=== PATIENT | female | born 1990 ===

== ENCOUNTER 2016-12-09 06:20 | Inpatient (IN) ==
[2016-12-09] MEDS ORDERED: MEPERIDINE 50 MG/1 ML VIAL IM PRN (06:33)
[2016-12-09] MEDS ORDERED: ONDANSETRON 4 MG/2 ML VIAL IV PRN (06:33)
[2016-12-09] MEDS ORDERED: LACTATED RINGERS 1,000 ML IV SCH (07:00)
[2016-12-09] MEDS ORDERED: OXYTOCIN/LR 20 UNIT/1,000 ML BAG IV SCH ×2 (07:00→07:30)
[2016-12-09 07:02] LABS: Basophils % 0.3 % (0.0-0.8); Eosinophils # 0.1 10*3/uL (0.0-0.87); Eosinophils % 1.2 % (0.00-10.9); Hematocrit 34.1 VOL% (35.7-47.0); Hemoglobin 11.3 GM/DL (12.0-16.0); Immature Granulocytes % 0.7 %; Immature Granulocytes Absolute 0.05 #; Lymphocytes # 1.8 10*3/uL (1.4-4.0); Lymphocytes % 23.6 % (21.3-54.2); Mean Corpuscular HGB Conc 33.1 GM/DL (32-36); Mean Corpuscular Hemoglobin 27 PG (27-34); Mean Corpuscular Volume 81.2 FL (87-102); Mean Platelet Volume 11.9 FL (9.6-12.0); Monocytes # 0.5 10*3/uL (0.11-0.8); Monocytes % 6.2 % (1.7-12.7); Neutrophils # 5.1 10*3/uL (1.4-7.4); Platelet Count 195 T/CUMM (130-400); Red Cell Distribution Width 14.2 % (9.3-17.3); White Blood Count 7.4 T/CUMM (4-12)
[2016-12-09] MEDS ORDERED: ePHEDrine 50 MG/ML AMP IV PRN (07:21)
[2016-12-09] MEDS ORDERED: diphenhydrAMINE 50 MG/1 ML VIAL IV PRN ×2 (07:21)
[2016-12-09] MEDS ORDERED: fentaNYL 2 MCG/ROPIV 0.2% EPID 150 ML EPIDURAL SCH (07:21)
[2016-12-09] MEDS ORDERED: PROMETHAZINE 25 MG/1 ML VIAL IM ONE (07:21)
[2016-12-09] MEDS ORDERED: FAMOTIDINE 20 MG/2 ML VIAL IV ONE (07:21)
[2016-12-09] MEDS ORDERED: hydrOXYzine HCL 25 MG/1 ML VIAL IM PRN (07:21)
[2016-12-09] MEDS ORDERED: CITRIC ACID/SODIUM CITRATE 30 ML UDCUP PO ONE (07:21)
[2016-12-09] MEDS ORDERED: LACTATED RINGERS 1,000 ML IV ONE (07:21)
[2016-12-09] MEDS ORDERED: ONDANSETRON 4 MG/2 ML VIAL IV ONE (07:21)
[2016-12-09 07:40] LABS: Alanine Aminotransferase 21 U/L (13-56); Albumin 2.6 G/DL (3.4-5.0); Alkaline Phosphatase 128 U/L (45-117); Aspartate Amino Transferase 18 U/L (0-37); Bilirubin,Total < 0.39 MG/DL (0.2-1.0); Blood Urea Nitrogen 9 MG/DL (7-18); Calcium 8.6 MG/DL (8.5-10.1); Glucose 93 MG/DL (74-106); Osmolality,Calculated 273.7 MOS/KG (273-304); Sodium 138 MMOL/L (136-145); Total Protein 6.7 G/DL (6.4-8.3)
[2016-12-09] MEDS ORDERED: MEPERIDINE 50 MG/1 ML VIAL IV PRN (08:47)
--- NOTE | 2016-12-09 10:02 | OB/GYN History & Physical ---
History of Present Illness Chief complaint: In for elective induction of labor due to term . History of present illness: Ms. Cedeño is a 26 year old female who is a 4 para 3 living 3. Her SONA is 12/13/2016 for an estimated gestational age of 39 weeks and 3 days. The patient presents for elective induction of labor due to term . The risk and benefits have been thoroughly discussed with this patient and significant other and plan of care has been discussed with Dr. Salcido, all parties are in agreement with plan. The patient began her care late, she then received routine care throughout and her course was uneventful. labs: She is O+, serologies nonreactive, rubella is immune , hepatitis B negative, HIV negative, GBS culture is negative. The patient has had 3 previous vaginal deliveries and the largest infant weighing 8 pounds and 1 ounce. She reported no complications with any of her pregnancies. Review of systems is negative with exception of above. Home Medications Medication Instructions Recorded Confirmed Type Multivitamin () [ 1 tablet PO DAILY 02/06/16 12/09/16 History Vitamin] Allergies Allergy/AdvReac Type Severity Reaction Status Date / Time No Known Allergies Allergy Verified 01/30/16 08:48 12 point system: reviewed and no additional remarkable complaints except as stated Medical,Surgical,& Family Hx - Medical History Medical History: noncontributory Psychological: No history of: Anxiety Disorders, ADHD, Behavior Problems, Bipolar Disorder, Depression, Previous Suicide Attempt, Psychiatric/Substance Abuse Tx, Schizophrenia, Violent Behavior, Psychiatric Problems Endocrine: History of: Diabetes Mellitus (NIDDM) (gestational) Reproductive: No history of: Ectopic - Surgical History Surgical History: noncontributory Thoracic Surgeries: Patient denies;: Organ Transplant Neurologic Surgeries: Patient denies: Neurologic Surgery Abdominal Surgeries: Patient denies: Abdominal Surgery Reproductive Surgeries: Patient denies;: Gynecologic Surgery - Family History Family History: Reports;: Family Cancer (pt mom and sister), Family Diabetes ( pt mom) Denies;: Family Anesthesia Reaction, Family Hypertension, Family Psychiatric Problems, Family Stroke, Additional Family History - Social History Smoking Status: Never smoker Frequency of Alcohol Use: None Type of Drug Use: None Marital Status: Single Lives With:: Significant Other 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 - Constitutional Vitals: Vital Signs Temp Pulse Resp BP Pulse Ox 12/09/16 08:00 98.0 F 68 20 135/88 100 12/09/16 06:36 97.6 F 130/69 General appearance: no acute distress - Antepartum / Post Antepartum Exam Cervix - Dilatation: 4 cm Effacement: 70% Station: -2 Rupture: Intact Presentation: Vertex Heart Rate: 140s Abdomen obstetrics: Present: bowel sounds normal Vagina: Present: normal moisture, discharge Uterus exam: Present: enlarged Anus/Rectum: Present: normal perianal skin - Respiratory Respiratory exam: Present: clear to auscultation bilaterally - Cardiovascular Cardiovascular exam: Present: regular rate and rhythm - GI/Abdominal GI/Abdominal exam: Present: normal bowel sounds, soft - Extremities Exam Extremities exam: Present: normal inspection - Neurological Exam Neurological exam: Present: alert, oriented X3 - Psychiatric Psychiatric exam: Present: normal affect, normal mood - Skin Skin exam: Present: normal color, warm Assessment and Plan (1) Term Status: Acute Assessment and plan: Admit IV fluids IV Pitocin per protocol Artificial rupture membranes when appropriate Internal monitors if indicated Epidural anesthesia if desired Anticipate Current Visit: Yes Results - Labs CBC & BMP: 12/09/16 06:52 12/09/16 06:52 Quality Measures - VTE Contraindication to Pharmacological VTE Prophylaxis: Clinical assessment deems Pt at low risk, no prophalaxis needed
[2016-12-09] MEDS ORDERED: LIDOCAINE 1% 50 ML VIAL ONE (12:40)
[2016-12-09] MEDS ORDERED: miSOPROStol 200 MCG TABLET ONE (12:40)
--- NOTE | 2016-12-09 13:04 | Event Note ---
HPI: Ms Cedeño presented to the hospital for elective induction of labor due to term . The risk and benefits were discussed with the patient and significant other, plan of care was discussed with Dr. Salcido and all parties were in agreement plan. Stage I: The patient was admitted she received IV fluids and IV Pitocin per protocol. Artificial rupture membranes was performed with clear fluid noted. The patient progressed in labor with a CAT 1 tracing. She received an epidural for pain control. She had an uneventful course of labor. Stage II: The patient was complete and complained of pressure and desire to push. She pushed for approximately 15 minutes after which time the 's head was delivered. The mouth and nose were suctioned on perineum. The remainder the infant was delivered at 1248, a viable female was noted. Apgars were 8 at 1 minute and 9 at 5 minutes. weight was 8 pounds and 8 ounces. A cord pH was obtained and sent to the lab. The was placed on the mom's abdomen for skin to skin bonding. Stage III: A spontaneous delivery of a Alexander placenta with a three-vessel cord noted.. The placenta was further examined appeared to be grossly intact. The vagina cervix was inspected with no tears or lacerations noted. Estimated blood loss was approximately 150 cc. At the time of dictation mother and baby are both in stable condition.
[2016-12-09 13:09] LABS: Apearance,Urine CLEAR (Clear); Bilirubin,Urine Negative (Negative); Blood, Urine Negative (Negative); Glucose,Urine (UA) Negative (Negative); Hyaline Casts,Urine 1 /LPF (0-3); Ketones,Urine Negative (Negative); Mucus,Urine Occasional /LPF (Occasional); Nitrite,Urine Negative (Negative); Protein,Urine Negative; Squamous Epithelial Cell,Urine Occasional /HPF (0-10); Urine Color Yellow (Yellow); Urine Specific Gravity 1.018 (1.001-1.035); Urine Urobilinogen < 2.0 EU/DL (0.2-1.0); WBC,Urine 1 /HPF (0-6)
--- NOTE | 2016-12-09 14:15 | Anesthesia Post-Op ---
Anesthesia Post OP - Post Ansesthetic Evaluation Patient seen in post op: Yes Resp: within normal limits CV: within normal limits Mental: within normal limits Temp: within normal limits [id number]: within normal limits Nausea and Vomiting: within normal limits Pain: within normal limits
[2016-12-09] MEDS ORDERED: LANOLIN 50% CREAM 0.3 OZ TUBE TOP PRN (15:14)
[2016-12-09] MEDS ORDERED: OXYTOCIN/LR 20 UNIT/1,000 ML BAG IV ONE (15:14)
[2016-12-09] MEDS ORDERED: ACETAMINOPHEN 325 MG TABLET PO PRN (15:14)
[2016-12-09] MEDS ORDERED: DIPH/TET/ACEL PERT BOOSTER VACCINE 0.5 ML VIAL IM ONE (15:14)
[2016-12-09] MEDS ORDERED: oxyCODONE/ACETAMINOPHEN 5-325 MG TABLET PO PRN ×2 (15:14)
[2016-12-09] MEDS ORDERED: RHO(D) IMMUNE GLOBULIN 300 MCG SYRINGE IM ONE (15:14)
[2016-12-09] MEDS ORDERED: MEASLES/MUMPS/RUBELLA VACCINE 0.5 ML VIAL SUBCUT ONE (15:14)
[2016-12-09] MEDS ORDERED: BISACODYL 10 MG SUPP RECTAL PRN (15:14)
[2016-12-09] MEDS ORDERED: WITCH HAZEL PADS 100/JAR TOP PRN (15:14)
[2016-12-09] MEDS ORDERED: HYDROCORTISONE 2.5% RECTAL CREAM 30 GM TUBE TOP PRN (15:14)
[2016-12-09] MEDS ORDERED: BENZOCAINE 20%/MENTHOL 0.5% SPRAY 56 GM CAN TOP PRN (15:14)
[2016-12-09] MEDS: ACETAMINOPHEN/CODEINE 300-30 MG TABLET PO PRN (18:13)
[2016-12-09] MEDS: DOCUSATE SODIUM 100 MG CAPSULE PO SCH (21:09)
[2016-12-10] MEDS: IBUPROFEN 800 MG TABLET PO PRN ×4 (01:08→20:03)
[2016-12-10 06:37] LABS: Basophils % 0.2 % (0.0-0.8); Eosinophils # 0.1 10*3/uL (0.0-0.87); Eosinophils % 1.1 % (0.00-10.9); Hematocrit 30.1 VOL% (35.7-47.0); Hemoglobin 9.9 GM/DL (12.0-16.0); Immature Granulocytes % 0.4 %; Immature Granulocytes Absolute 0.04 #; Lymphocytes # 1.7 10*3/uL (1.4-4.0); Lymphocytes % 18.3 % (21.3-54.2); Mean Corpuscular HGB Conc 32.9 GM/DL (32-36); Mean Corpuscular Hemoglobin 27 PG (27-34); Mean Corpuscular Volume 81.4 FL (87-102); Mean Platelet Volume 12.3 FL (9.6-12.0); Monocytes # 0.6 10*3/uL (0.11-0.8); Monocytes % 6.3 % (1.7-12.7); Neutrophils # 6.9 10*3/uL (1.4-7.4); Neutrophils % 73.7 % (38.7-73.9); Platelet Count 150 T/CUMM (130-400); Red Cell Distribution Width 14.1 % (9.3-17.3); White Blood Count 9.4 T/CUMM (4-12)
[2016-12-10] MEDS: DOCUSATE SODIUM 100 MG CAPSULE PO SCH (09:00)
[2016-12-10] MEDS: ACETAMINOPHEN/CODEINE 300-30 MG TABLET PO PRN (13:05)
--- NOTE | 2016-12-10 20:50 | Progress Note ---
Family Medicine PN Sub Interval history: Status post vaginal day #2 Lungs are clear, cardiac exam benign Abdomen benign, uterus is nice and firm Extremities well with no limits neurologic grossly intact Assessment and plan Possible discharge in a.m. continue with present therapy Exam (Progress Note) - Constitutional Vitals: Period Temp Pulse Resp BP Sys/Moore Pulse Ox Last 24 Hr 97.1 F-98.8 F 64-73 18-20 104-133/50-72 97-99 Results - Labs CBC & BMP: 12/10/16 06:15 12/09/16 06:52 Quality Measures - VTE Contraindication to Pharmacological VTE Prophylaxis: Clinical assessment deems Pt at low risk, no prophalaxis needed Specialty Discharge - Follow Up or Referrals Follow up with: Jadon Salcido MD [Physician] -
[2016-12-11 07:21] VITALS: BP 126/76
[2016-12-11] MEDS: IBUPROFEN 800 MG TABLET PO PRN (07:44)
[2016-12-11] MEDS: ACETAMINOPHEN/CODEINE 300-30 MG TABLET PO PRN (07:45)
[2016-12-11] MEDS: DOCUSATE SODIUM 100 MG CAPSULE PO SCH (08:54)
--- NOTE | 2016-12-11 09:28 | Discharge Summary ---
Hospital Course - Hospital Course Hospital Course: Ms. Cedeño presented to the labor department for elective induction of labor due to term . She subsequently delivered a viable infant with no complications. She has followed a normal course and she has done well. She is bleeding minimally with no odor. Her fundus is firm and midline. Her perineum is intact with no edema. She is voiding without difficulty. Her vital signs and lab values are stable. She is bonding well with her . She will be discharged home prescriptions for pain and a follow-up appointment in our office. Diagnosis - Discharge Diagnosis (1) Term Status: Acute Specialty Discharge - Follow Up or Referrals Follow up with: Jadon Salcido MD [Physician] - (Follow-up in 4 weeks to set up for surgery for an elective bilateral tubal ligation.) Discharge Plan - Discharge Data Disposition: Disch To Home/Self Care Condition at Discharge: Stable Discharge Diet: advance to your usual diet, regular diet Activity: resume usual activities as tolerated Hygiene: no restrictions Weight Bearing at Discharge: weight bear as tolerated Driving: no restrictions Contact your physician if you experience:: fever over 101, pain uncontrolled by pain medications - Discharge Medications New Acetamin/Codeine 300-30 Tab [Tylenol/Codeine #3] 2 tablet PO Q4H PRN #30 tablet PRN Reason: Pain Mild (1-3) Ibuprofen Tab [Motrin Tab] 800 mg PO Q6H PRN #30 tablet PRN Reason: Pain Moderate (4-7) No Action Multivitamin () [ Vitamin] 1 tablet PO DAILY - Follow Up or Referral Follow Up: Jadon Salcido MD [Physician] - (Follow-up in 6 weeks) - Forms/Instructions Instructions: Depression (GEN), Perineal Care (DC), Vaginal Delivery (DC), Bleeding (DC) Exam - Constitutional Vitals: Period Temp Pulse Resp BP Sys/Moore Pulse Ox Last 24 Hr 97.1 F-97.7 F 65-82 18-20 121-132/63-76 97-98 General appearance: no acute distress - Head Head exam: Present: normal inspection - Respiratory Respiratory exam: Present: clear to auscultation bilaterally - Cardiovascular Cardiovascular exam: Present: regular rate and rhythm - GI/Abdominal GI/Abdominal exam: Present: normal bowel sounds, soft - Extremities Exam Extremities exam: Present: normal inspection - Neurological Exam Neurological exam: Present: alert, oriented X3 - Psychiatric Psychiatric exam: Present: normal affect, normal mood - Skin Skin exam: Present: normal color, warm DS: Provider Date of admission: 12/09/16 06:33 Primary care physician: Nazanin Figueroa MD Attending physician on admission: Jdaon Salcido MD Consults: 12/09/16 15:14 Consult to Hand Finisher [CONS] Routine Consult Hand Finisher: Breast Feeding Discharging clinician: Naty Koehler CNM Expected date of discharge: 12/11/16
== END 2016-12-11 11:35 | disposition home or self-care (01) | DRG 775 ==
LOC: N.LDOUT 06:20 → N.LD 06:21 → N.OB 14:39
PROVIDERS: ADMIT Obstetrics & Gynecology; ATTEND Obstetrics & Gynecology

== ENCOUNTER 2017-12-24 06:14 | Inpatient (IN) ==
[~2017-12-24 06:14] MED LIST: ERTAPENEM 1,000 MG VIAL ONE; ERTAPENEM 1,000 MG in SODIUM CHLORIDE 0.9% 100 ML IV ONE
[2017-12-24] MEDS ORDERED: LACTATED RINGERS 1,000 ML IV SCH (07:00)
[2017-12-24] MEDS ORDERED: ERTAPENEM 1,000 MG in SODIUM CHLORIDE 0.9% 100 ML IV ONE (08:00)
[2017-12-24] MEDS ORDERED: LIDOCAINE 1%/EPI INJ 20 ML VIAL ONE (08:31)
[2017-12-24] MEDS ORDERED: MINERAL OIL (TOPICAL) 25 ML BOTTLE TOP ONE (08:31)
[2017-12-24] MEDS ORDERED: SEVOFLURANE 1 UNIT/15 MINUTE INH ONE (11:53)
[2017-12-24] MEDS ORDERED: LIDOCAINE 1% 5 ML VIAL ONE (11:53)
[2017-12-24] MEDS ORDERED: PROPOFOL 200 MG/20 ML VIAL IV ONE (11:53)
[2017-12-24] MEDS ORDERED: MIDAZOLAM 2 MG/2 ML VIAL ONE (11:54)
[2017-12-24] MEDS ORDERED: SUCCINYLCHOLINE 200 MG/10 ML VIAL ONE (11:54)
[2017-12-24] MEDS ORDERED: fentaNYL 100 MCG/2 ML VIAL ONE (11:54)
[2017-12-24] MEDS ORDERED: KETOROLAC 30 MG/1 ML VIAL ONE (11:54)
[2017-12-24] MEDS ORDERED: NEOSTIGMINE 10 MG/10 ML VIAL ONE (11:54)
[2017-12-24] MEDS ORDERED: LACTATED RINGERS 1,000 ML IV ONE (11:54)
[2017-12-24] MEDS ORDERED: ONDANSETRON 4 MG/2 ML VIAL ONE ×2 (11:54→12:20)
[2017-12-24] MEDS ORDERED: DEXAMETHASONE 10 MG/1 ML VIAL ONE (11:54)
[2017-12-24] MEDS ORDERED: ACETAMINOPHEN 1,000 MG/100 ML VIAL IV ONE (11:54)
[2017-12-24] MEDS ORDERED: ROCURONIUM 100 MG/10 ML VIAL IV ONE (11:54)
[2017-12-24] MEDS ORDERED: GLYCOPYRROLATE 0.4 MG/2 ML VIAL ONE (11:54)
[2017-12-24] MEDS: HYDROmorphone 2 MG/1 ML VIAL IV PRN ×4 (12:20→20:39)
[2017-12-24] MEDS ORDERED: HYDROmorphone 2 MG/1 ML VIAL ONE (12:20)
[2017-12-24] MEDS ORDERED: ONDANSETRON 4 MG/2 ML VIAL IV PRN ×2 (12:24→13:19)
[2017-12-24] MEDS ORDERED: PROMETHAZINE 25 MG/1 ML VIAL IM PRN (13:19)
[2017-12-24] MEDS: LACTATED RINGERS 1,000 ML IV SCH ×2 (13:28→20:46)
[2017-12-24 14:18] LABS: Basophils % 0.1 % (0.0-0.8); Eosinophils % 0.1 % (0.00-10.9); Hematocrit 39.5 VOL% (35.7-47.0); Immature Granulocytes % 0.6 %; Immature Granulocytes Absolute 0.06 #; Lymphocytes # 0.6 10*3/uL (1.4-4.0); Lymphocytes % 5.6 % (21.3-54.2); Mean Corpuscular HGB Conc 32.9 GM/DL (32-36); Mean Corpuscular Hemoglobin 29 PG (27-34); Mean Corpuscular Volume 88.2 FL (87-102); Mean Platelet Volume 11.5 FL (9.6-12.0); Monocytes # 0.1 10*3/uL (0.11-0.8); Monocytes % 0.7 % (1.7-12.7); Neutrophils # 9.2 10*3/uL (1.4-7.4); Neutrophils % 92.9 % (38.7-73.9); Platelet Count 220 T/CUMM (130-400); Red Blood Count 4.48 MC/CUMM (3.8-5.5); Red Cell Distribution Width 13.2 % (9.3-17.3); White Blood Count 9.9 T/CUMM (4-12)
[2017-12-24 14:42] LABS: Band Neutrophils 9 % (0-10); Lymphocytes 8 % (20-55); Platelet Estimate Normal; Segmented Neutrophils 82 % (50-85); Total Cells Counted 100
[2017-12-24 14:43] LABS: Calcium 8.1 MG/DL (8.5-10.1); Osmolality,Calculated 275.5 MOS/KG (273-304); Potassium 4.1 MMOL/L (3.5-5.1)
[2017-12-24] MEDS: KETOROLAC 30 MG/1 ML VIAL IV SCH ×2 (14:50→22:34)
[2017-12-24] MEDS: ALVIMOPAN 12 MG CAPSULE PO SCH (20:39)
[2017-12-24] MEDS: ENOXAPARIN 40 MG/0.4 ML SYRINGE SUBCUT SCH (20:40)
[2017-12-25] MEDS: HYDROmorphone 2 MG/1 ML VIAL IV PRN ×6 (00:01→20:38)
[2017-12-25] MEDS: KETOROLAC 30 MG/1 ML VIAL IV SCH ×4 (03:17→21:35)
[2017-12-25] MEDS: LACTATED RINGERS 1,000 ML IV SCH ×3 (04:21→14:21)
[2017-12-25 07:22] LABS: Basophils % 0.1 % (0.0-0.8); Eosinophils % 0.3 % (0.00-10.9); Hematocrit 34.9 VOL% (35.7-47.0); Hemoglobin 11.4 GM/DL (12.0-16.0); Immature Granulocytes % 0.3 %; Immature Granulocytes Absolute 0.03 #; Lymphocytes # 1.8 10*3/uL (1.4-4.0); Lymphocytes % 16.7 % (21.3-54.2); Mean Corpuscular HGB Conc 32.7 GM/DL (32-36); Mean Corpuscular Hemoglobin 29 PG (27-34); Mean Corpuscular Volume 89.7 FL (87-102); Mean Platelet Volume 12.1 FL (9.6-12.0); Monocytes # 0.8 10*3/uL (0.11-0.8); Monocytes % 7.8 % (1.7-12.7); Neutrophils # 7.9 10*3/uL (1.4-7.4); Neutrophils % 74.8 % (38.7-73.9); Platelet Count 180 T/CUMM (130-400); Red Blood Count 3.89 MC/CUMM (3.8-5.5); Red Cell Distribution Width 13.2 % (9.3-17.3); White Blood Count 10.6 T/CUMM (4-12)
[2017-12-25 07:53] LABS: Calcium 8.1 MG/DL (8.5-10.1); Osmolality,Calculated 272.7 MOS/KG (273-304); Potassium 3.8 MMOL/L (3.5-5.1)
[2017-12-25] MEDS: ALVIMOPAN 12 MG CAPSULE PO SCH ×2 (09:03→20:38)
[2017-12-25] MEDS: DEXT 5% NACL 0.45% KCL 20 MEQ 20 MEQ/1,000 ML BAG IV SCH (15:19)
[2017-12-25] MEDS: ENOXAPARIN 40 MG/0.4 ML SYRINGE SUBCUT SCH (20:38)
[2017-12-26] MEDS: HYDROmorphone 2 MG/1 ML VIAL IV PRN ×5 (02:42→23:26)
[2017-12-26] MEDS: KETOROLAC 30 MG/1 ML VIAL IV SCH ×4 (03:58→21:08)
[2017-12-26] MEDS: DEXT 5% NACL 0.45% KCL 20 MEQ 20 MEQ/1,000 ML BAG IV SCH (03:59)
[2017-12-26 06:25] LABS: Basophils % 0.2 % (0.0-0.8); Eosinophils # 0.1 10*3/uL (0.0-0.87); Eosinophils % 1.2 % (0.00-10.9); Hematocrit 36.7 VOL% (35.7-47.0); Hemoglobin 11.4 GM/DL (12.0-16.0); Immature Granulocytes % 0.6 %; Immature Granulocytes Absolute 0.05 #; Lymphocytes # 1.6 10*3/uL (1.4-4.0); Lymphocytes % 17.6 % (21.3-54.2); Mean Corpuscular HGB Conc 31.1 GM/DL (32-36); Mean Corpuscular Hemoglobin 28 PG (27-34); Mean Corpuscular Volume 90.4 FL (87-102); Mean Platelet Volume 11.6 FL (9.6-12.0); Monocytes # 0.7 10*3/uL (0.11-0.8); Monocytes % 7.3 % (1.7-12.7); Neutrophils # 6.5 10*3/uL (1.4-7.4); Neutrophils % 73.1 % (38.7-73.9); Platelet Count 202 T/CUMM (130-400); Red Blood Count 4.06 MC/CUMM (3.8-5.5); Red Cell Distribution Width 13.3 % (9.3-17.3); White Blood Count 8.9 T/CUMM (4-12)
[2017-12-26 08:53] LABS: Calcium 7.9 MG/DL (8.5-10.1); Osmolality,Calculated 272.7 MOS/KG (273-304); Potassium 3.7 MMOL/L (3.5-5.1)
[2017-12-26] MEDS: ALVIMOPAN 12 MG CAPSULE PO SCH ×2 (09:47→21:08)
[2017-12-26] MEDS: ENOXAPARIN 40 MG/0.4 ML SYRINGE SUBCUT SCH (21:07)
[2017-12-27] MEDS: KETOROLAC 30 MG/1 ML VIAL IV SCH ×2 (03:43→08:46)
[2017-12-27] MEDS: ALVIMOPAN 12 MG CAPSULE PO SCH (11:17)
[2017-12-27] MEDS: HYDROmorphone 2 MG/1 ML VIAL IV PRN ×5 (12:24→22:15)
[2017-12-27] MEDS: ENOXAPARIN 40 MG/0.4 ML SYRINGE SUBCUT SCH (20:48)
[2017-12-28] MEDS: HYDROmorphone 2 MG/1 ML VIAL IV PRN ×5 (00:13→20:40)
[2017-12-28] MEDS: ENOXAPARIN 40 MG/0.4 ML SYRINGE SUBCUT SCH (20:41)
[2017-12-29] MEDS: HYDROmorphone 2 MG/1 ML VIAL IV PRN (02:24)
[2017-12-29] MEDS: LACTATED RINGERS 1,000 ML IV SCH ×2 (03:51→10:56)
[2017-12-29] MEDS ORDERED: BUPIVACAINE 0.25% /EPI 10 ML VIAL ONE (11:49)
[2017-12-29] MEDS ORDERED: LIDOCAINE 1%/EPI INJ 20 ML VIAL ONE (11:49)
[2017-12-29] MEDS ORDERED: MIDAZOLAM 2 MG/2 ML VIAL ONE (12:41)
[2017-12-29] MEDS ORDERED: fentaNYL 100 MCG/2 ML VIAL ONE (12:41)
[2017-12-29] MEDS ORDERED: PROPOFOL 200 MG/20 ML VIAL IV ONE (12:42)
[2017-12-29] MEDS ORDERED: ETOMIDATE 40 MG/20 ML VIAL IV ONE (12:42)
[2017-12-29] MEDS ORDERED: SODIUM CHLORIDE 0.9% 100 ML IV ONE (12:42)
[2017-12-29 19:07] VITALS: BP 119/60
== END 2017-12-29 18:30 | disposition home or self-care (01) | DRG 330 ==
LOC: N.OR 06:14 → N.SDSINP 06:18 → N.5E 13:05
PROVIDERS: ADMIT Surgery; ATTEND Surgery

== ENCOUNTER 2018-01-24 06:01 | Inpatient (IN) ==
[2018-01-24] MEDS ORDERED: PIPERACILLIN/TAZOBACTAM 3,375 MG in SODIUM CHLORIDE 0.9% 100 ML IV STA (06:38)
[2018-01-24] MEDS ORDERED: PIPERACILLIN/TAZOBACTAM 3,375 MG VIAL IV ONE (06:41)
[2018-01-24] MEDS ORDERED: ONDANSETRON 4 MG/2 ML VIAL IV PRN (07:48)
[2018-01-24] MEDS ORDERED: ACETAMINOPHEN 325 MG TABLET PO PRN (07:48)
[2018-01-24] MEDS ORDERED: LIDOCAINE 1%/EPI INJ 20 ML VIAL ONE (08:22)
[2018-01-24] MEDS ORDERED: BUPIVACAINE 0.25% /EPI 10 ML VIAL ONE (08:22)
[2018-01-24] MEDS: cefOXitin 2,000 MG in SYRINGE 1 EACH IV SCH ×3 (09:30→22:03)
[2018-01-24] MEDS ORDERED: MIDAZOLAM 2 MG/2 ML VIAL ONE (10:48)
[2018-01-24] MEDS ORDERED: LACTATED RINGERS 1,000 ML IV ONE (10:49)
[2018-01-24] MEDS ORDERED: KETAMINE 500 MG/10 ML VIAL ONE (10:49)
[2018-01-24] MEDS: PANTOPRAZOLE 40 MG TABLET PO SCH (14:41)
[2018-01-24] MEDS: MORPHINE 4 MG/1 ML VIAL IV PRN ×2 (15:23→22:10)
[2018-01-24] MEDS: ENOXAPARIN 40 MG/0.4 ML SYRINGE SUBCUT SCH (22:02)
[2018-01-25] MEDS: cefOXitin 2,000 MG in SYRINGE 1 EACH IV SCH ×4 (04:15→21:24)
[2018-01-25 07:15] LABS: Basophils % 0.3 % (0.0-0.8); Eosinophils # 0.2 10*3/uL (0.0-0.87); Eosinophils % 2.8 % (0.00-10.9); Hematocrit 31.3 VOL% (35.7-47.0); Hemoglobin 10.3 GM/DL (12.0-16.0); Immature Granulocytes % 0.6 %; Immature Granulocytes Absolute 0.04 #; Lymphocytes # 1.7 10*3/uL (1.4-4.0); Lymphocytes % 24.7 % (21.3-54.2); Mean Corpuscular HGB Conc 32.9 GM/DL (32-36); Mean Corpuscular Hemoglobin 28 PG (27-34); Mean Corpuscular Volume 86.2 FL (87-102); Mean Platelet Volume 10.9 FL (9.6-12.0); Monocytes # 0.6 10*3/uL (0.11-0.8); Monocytes % 9.1 % (1.7-12.7); Neutrophils # 4.2 10*3/uL (1.4-7.4); Neutrophils % 62.5 % (38.7-73.9); Platelet Count 266 T/CUMM (130-400); Red Blood Count 3.63 MC/CUMM (3.8-5.5); Red Cell Distribution Width 13.7 % (9.3-17.3); White Blood Count 6.7 T/CUMM (4-12)
[2018-01-25] MEDS: PANTOPRAZOLE 40 MG TABLET PO SCH (09:29)
[2018-01-25] MEDS: ENOXAPARIN 40 MG/0.4 ML SYRINGE SUBCUT SCH (21:24)
[2018-01-26] MEDS: cefOXitin 2,000 MG in SYRINGE 1 EACH IV SCH ×4 (04:53→20:38)
[2018-01-26] MEDS: MORPHINE 4 MG/1 ML VIAL IV PRN (05:04)
[2018-01-26 05:25] LABS: Basophils % 0.4 % (0.0-0.8); Eosinophils # 0.2 10*3/uL (0.0-0.87); Eosinophils % 3.3 % (0.00-10.9); Hematocrit 31.6 VOL% (35.7-47.0); Hemoglobin 10.4 GM/DL (12.0-16.0); Immature Granulocytes % 0.9 %; Immature Granulocytes Absolute 0.05 #; Lymphocytes # 1.9 10*3/uL (1.4-4.0); Mean Corpuscular HGB Conc 32.9 GM/DL (32-36); Mean Corpuscular Hemoglobin 28 PG (27-34); Mean Corpuscular Volume 85.2 FL (87-102); Mean Platelet Volume 10.8 FL (9.6-12.0); Monocytes # 0.5 10*3/uL (0.11-0.8); Monocytes % 8.2 % (1.7-12.7); Neutrophils # 3.1 10*3/uL (1.4-7.4); Neutrophils % 54.2 % (38.7-73.9); Platelet Count 302 T/CUMM (130-400); Red Blood Count 3.71 MC/CUMM (3.8-5.5); Red Cell Distribution Width 13.5 % (9.3-17.3); White Blood Count 5.7 T/CUMM (4-12)
[2018-01-26 05:35] LABS: Calcium 8.4 MG/DL (8.5-10.1); Osmolality,Calculated 277.3 MOS/KG (273-304); Potassium 3.4 MMOL/L (3.5-5.1)
[2018-01-26] MEDS: PANTOPRAZOLE 40 MG TABLET PO SCH (08:21)
[2018-01-26] MEDS: ENOXAPARIN 40 MG/0.4 ML SYRINGE SUBCUT SCH (20:39)
[2018-01-27] MEDS: cefOXitin 2,000 MG in SYRINGE 1 EACH IV SCH (04:21)
[2018-01-27] MEDS: PANTOPRAZOLE 40 MG TABLET PO SCH (08:03)
[2018-01-27] MEDS ORDERED: POTASSIUM CHLORIDE 20 MEQ TABLET PO SCH (09:00)
[2018-01-27] MEDS ORDERED: CLINDAMYCIN 300 MG CAPSULE PO SCH (12:00)
[2018-01-27 12:56] VITALS: BP 105/73
== END 2018-01-27 16:31 | disposition home health service (06) | DRG 580 ==
LOC: EDUNIT# → EDBD → N.ED 06:01 → N.EDINP 07:08 → N.5E 09:42
PROVIDERS: ADMIT Surgery; ATTEND Surgery

== ENCOUNTER 2018-02-02 10:30 | Inpatient (IN) ==
[2018-02-02] MEDS ORDERED: ONDANSETRON 4 MG/2 ML VIAL ONE (10:54)
[2018-02-02] MEDS ORDERED: HYDROmorphone 2 MG/1 ML VIAL ONE (10:55)
[2018-02-02] MEDS ORDERED: PIPERACILLIN/TAZOBACTAM 3,375 MG in SODIUM CHLORIDE 0.9% 100 ML IV STA (11:02)
[2018-02-02] MEDS ORDERED: ONDANSETRON 4 MG/2 ML VIAL IV STA (11:22)
[2018-02-02] MEDS ORDERED: HYDROmorphone 2 MG/1 ML VIAL IV STA (11:22)
[2018-02-02] MEDS ORDERED: ACETAMINOPHEN 325 MG TABLET PO PRN (14:07)
[2018-02-02] MEDS ORDERED: PROMETHAZINE 25 MG/1 ML VIAL IM PRN (14:07)
[2018-02-02] MEDS: LACTATED RINGERS 1,000 ML IV SCH (14:30)
[2018-02-02] MEDS: KETOROLAC 15 MG/1 ML VIAL IV SCH ×2 (14:32→20:08)
[2018-02-02] MEDS: metroNIDAZOLE INJ 500 MG in PREMIX 1 EACH IV SCH ×2 (14:32→22:35)
[2018-02-02] MEDS: HYDROmorphone 2 MG/1 ML VIAL IV PRN ×2 (15:40→22:37)
[2018-02-02] MEDS: PIPERACILLIN/TAZOBACTAM 3,375 MG in SODIUM CHLORIDE 0.9% 100 ML IV SCH (15:40)
[2018-02-03] MEDS: PIPERACILLIN/TAZOBACTAM 3,375 MG in SODIUM CHLORIDE 0.9% 100 ML IV SCH ×3 (00:32→17:35)
[2018-02-03] MEDS: KETOROLAC 15 MG/1 ML VIAL IV SCH ×4 (01:59→22:35)
[2018-02-03] MEDS: HYDROmorphone 2 MG/1 ML VIAL IV PRN ×2 (02:45→07:00)
[2018-02-03] MEDS: ENOXAPARIN 40 MG/0.4 ML SYRINGE SUBCUT SCH (06:49)
[2018-02-03] MEDS: metroNIDAZOLE INJ 500 MG in PREMIX 1 EACH IV SCH (06:49)
[2018-02-03] MEDS ORDERED: LACTATED RINGERS 1,000 ML IV ONE ×2 (07:06→10:02)
[2018-02-03] MEDS: ONDANSETRON 4 MG/2 ML VIAL IV PRN (07:24)
[2018-02-03 08:45] LABS: Basophils % 0.1 % (0.0-0.8); Hematocrit 36.1 VOL% (35.7-47.0); Hemoglobin 11.6 GM/DL (12.0-16.0); Immature Granulocytes % 0.5 %; Lymphocytes # 0.6 10*3/uL (1.4-4.0); Lymphocytes % 2.7 % (21.3-54.2); Mean Corpuscular HGB Conc 32.1 GM/DL (32-36); Mean Corpuscular Hemoglobin 28 PG (27-34); Mean Platelet Volume 10.5 FL (9.6-12.0); Monocytes # 0.4 10*3/uL (0.11-0.8); Monocytes % 2.1 % (1.7-12.7); Neutrophils # 19.7 10*3/uL (1.4-7.4); Neutrophils % 94.6 % (38.7-73.9); Platelet Count 379 T/CUMM (130-400); Red Blood Count 4.15 MC/CUMM (3.8-5.5); Red Cell Distribution Width 14.5 % (9.3-17.3); White Blood Count 20.9 T/CUMM (4-12)
[2018-02-03 09:06] LABS: Band Neutrophils 6 % (0-10); Hypochromasia 1+; Lymphocytes 2 % (20-55); Platelet Estimate Adequate; Segmented Neutrophils 90 % (50-85); Total Cells Counted 100
[2018-02-03] MEDS: PANTOPRAZOLE 40 MG TABLET PO SCH (09:13)
[2018-02-03 09:15] LABS: Calcium 8.1 MG/DL (8.5-10.1); Osmolality,Calculated 276.7 MOS/KG (273-304)
[2018-02-03 10:52] LABS: Amorphous Crystals,Urine Few /HPF (Few); Apearance,Urine CLOUDY (Clear); Bilirubin,Urine Negative (Negative); Blood, Urine Negative (Negative); Glucose,Urine (UA) Negative (Negative); Ketones,Urine Negative (Negative); Mucus,Urine Occasional /LPF (Occasional); Nitrite,Urine Negative (Negative); Protein,Urine 30 MG/DL; RBC,Urine 2 /HPF (0-4); Urine Color Yellow (Yellow); Urine Urobilinogen < 2.0 EU/DL (0.2-1.0); WBC,Urine 1 /HPF (0-6)
[2018-02-03] MEDS ORDERED: cefOXitin 2,000 MG in SYRINGE 1 EACH IV ONE (11:27)
[2018-02-03] MEDS ORDERED: LIDOCAINE 1%/EPI INJ 20 ML VIAL ONE (12:48)
[2018-02-03] MEDS ORDERED: BUPIVACAINE 0.25% /EPI 10 ML VIAL ONE (12:48)
[2018-02-03] MEDS ORDERED: HYDROmorphone 2 MG/1 ML VIAL ONE ×2 (15:02→20:49)
[2018-02-03] MEDS ORDERED: NALOXONE 0.4 MG/ML VIAL IV PRN (16:12)
[2018-02-03] MEDS ORDERED: ALBUMIN 5% 12.5 GM/250 ML VIAL IV ONE (16:36)
[2018-02-03] MEDS ORDERED: PROPOFOL 200 MG/20 ML VIAL IV ONE ×2 (16:36→16:38)
[2018-02-03] MEDS ORDERED: LACTATED RINGERS 2,000 ML IV ONE (16:37)
[2018-02-03] MEDS ORDERED: VECURONIUM 10 MG VIAL IV ONE (16:37)
[2018-02-03] MEDS ORDERED: GLYCOPYRROLATE 0.4 MG/2 ML VIAL ONE (16:37)
[2018-02-03] MEDS ORDERED: ROCURONIUM 100 MG/10 ML VIAL IV ONE (16:37)
[2018-02-03] MEDS ORDERED: MIDAZOLAM 2 MG/2 ML VIAL ONE (16:37)
[2018-02-03] MEDS ORDERED: KETAMINE 500 MG/10 ML VIAL ONE (16:37)
[2018-02-03] MEDS ORDERED: NEOSTIGMINE 10 MG/10 ML VIAL ONE (16:37)
[2018-02-03] MEDS ORDERED: SEVOFLURANE 1 UNIT/15 MINUTE INH ONE (16:38)
[2018-02-03] MEDS: LACTATED RINGERS 1,000 ML IV SCH ×2 (17:33→17:34)
[2018-02-03 18:00] LABS: Basophils % 0.1 % (0.0-0.8); Hematocrit 36.9 VOL% (35.7-47.0); Hemoglobin 11.5 GM/DL (12.0-16.0); Immature Granulocytes % 0.5 %; Lymphocytes # 0.5 10*3/uL (1.4-4.0); Lymphocytes % 2.7 % (21.3-54.2); Mean Corpuscular HGB Conc 31.2 GM/DL (32-36); Mean Corpuscular Hemoglobin 28 PG (27-34); Mean Corpuscular Volume 89.6 FL (87-102); Mean Platelet Volume 10.2 FL (9.6-12.0); Monocytes # 0.2 10*3/uL (0.11-0.8); Monocytes % 1.2 % (1.7-12.7); Neutrophils # 19.3 10*3/uL (1.4-7.4); Neutrophils % 95.5 % (38.7-73.9); Platelet Count 317 T/CUMM (130-400); Red Blood Count 4.12 MC/CUMM (3.8-5.5); Red Cell Distribution Width 14.3 % (9.3-17.3); White Blood Count 20.2 T/CUMM (4-12)
[2018-02-03 18:26] LABS: Calcium 7.8 MG/DL (8.5-10.1); Osmolality,Calculated 274.7 MOS/KG (273-304); Potassium 3.8 MMOL/L (3.5-5.1)
[2018-02-03] MEDS ORDERED: HYDROmorphone 2 MG/1 ML VIAL IV ONE (20:49)
[2018-02-03] MEDS: MORPHINE PCA 30 MG/30 ML SYRINGE IV SCH (20:59)
[2018-02-03 21:17] LABS: Band Neutrophils 19 % (0-10); Lymphocytes 2 % (20-55); Platelet Estimate Normal; Segmented Neutrophils 77 % (50-85); Total Cells Counted 100
[2018-02-04] MEDS ORDERED: LACTATED RINGERS 1,000 ML IV ONE
[2018-02-04] MEDS: PIPERACILLIN/TAZOBACTAM 3,375 MG in SODIUM CHLORIDE 0.9% 100 ML IV SCH ×3 (00:57→17:21)
[2018-02-04] MEDS: LACTATED RINGERS 1,000 ML IV SCH ×4 (01:30→16:12)
[2018-02-04] MEDS: KETOROLAC 15 MG/1 ML VIAL IV SCH ×4 (03:27→20:27)
[2018-02-04 05:21] LABS: Basophils % 0.1 % (0.0-0.8); Hematocrit 34.5 VOL% (35.7-47.0); Hemoglobin 10.8 GM/DL (12.0-16.0); Immature Granulocytes Absolute 0.22 #; Lymphocytes # 0.9 10*3/uL (1.4-4.0); Lymphocytes % 3.7 % (21.3-54.2); Mean Corpuscular HGB Conc 31.3 GM/DL (32-36); Mean Corpuscular Hemoglobin 27 PG (27-34); Mean Corpuscular Volume 87.6 FL (87-102); Mean Platelet Volume 10.5 FL (9.6-12.0); Monocytes # 0.5 10*3/uL (0.11-0.8); Neutrophils # 21.4 10*3/uL (1.4-7.4); Neutrophils % 93.2 % (38.7-73.9); Platelet Count 306 T/CUMM (130-400); Red Blood Count 3.94 MC/CUMM (3.8-5.5); Red Cell Distribution Width 14.3 % (9.3-17.3)
[2018-02-04 05:43] LABS: Band Neutrophils 5 % (0-10); Hypochromasia 1+; Lymphocytes 5 % (20-55); Platelet Estimate Adequate; Segmented Neutrophils 88 % (50-85); Total Cells Counted 100
[2018-02-04 05:54] LABS: Calcium 7.8 MG/DL (8.5-10.1); Osmolality,Calculated 277.5 MOS/KG (273-304); Potassium 3.5 MMOL/L (3.5-5.1)
[2018-02-04] MEDS: ENOXAPARIN 40 MG/0.4 ML SYRINGE SUBCUT SCH (06:41)
[2018-02-04] MEDS: metroNIDAZOLE INJ 500 MG in PREMIX 1 EACH IV SCH (07:48)
[2018-02-04] MEDS: PANTOPRAZOLE 40 MG TABLET PO SCH (08:10)
[2018-02-04] MEDS ORDERED: HYDROmorphone 2 MG/1 ML VIAL ONE (11:18)
[2018-02-04] MEDS: HYDROmorphone 2 MG/1 ML VIAL IV ONE ×2 (11:20→14:18)
[2018-02-04] MEDS: MORPHINE PCA 30 MG/30 ML SYRINGE IV SCH ×2 (11:30→17:22)
[2018-02-05] MEDS: PIPERACILLIN/TAZOBACTAM 3,375 MG in SODIUM CHLORIDE 0.9% 100 ML IV SCH ×4 (00:21→23:57)
[2018-02-05] MEDS: LACTATED RINGERS 1,000 ML IV SCH (00:23)
[2018-02-05] MEDS: KETOROLAC 15 MG/1 ML VIAL IV SCH ×4 (03:32→20:40)
[2018-02-05 04:24] LABS: Basophils % 0.1 % (0.0-0.8); Eosinophils # 0.1 10*3/uL (0.0-0.87); Eosinophils % 0.7 % (0.00-10.9); Hematocrit 31.3 VOL% (35.7-47.0); Hemoglobin 9.8 GM/DL (12.0-16.0); Immature Granulocytes % 0.7 %; Immature Granulocytes Absolute 0.12 #; Lymphocytes % 5.6 % (21.3-54.2); Mean Corpuscular HGB Conc 31.3 GM/DL (32-36); Mean Corpuscular Hemoglobin 28 PG (27-34); Mean Corpuscular Volume 88.2 FL (87-102); Mean Platelet Volume 10.6 FL (9.6-12.0); Monocytes # 0.7 10*3/uL (0.11-0.8); Neutrophils % 88.9 % (38.7-73.9); Platelet Count 261 T/CUMM (130-400); Red Blood Count 3.55 MC/CUMM (3.8-5.5); Red Cell Distribution Width 14.5 % (9.3-17.3)
[2018-02-05 04:51] LABS: Calcium 7.4 MG/DL (8.5-10.1); Osmolality,Calculated 277.4 MOS/KG (273-304); Potassium 3.5 MMOL/L (3.5-5.1)
[2018-02-05] MEDS: ENOXAPARIN 40 MG/0.4 ML SYRINGE SUBCUT SCH (05:37)
[2018-02-05] MEDS: MORPHINE PCA 30 MG/30 ML SYRINGE IV SCH (06:15)
[2018-02-05] MEDS: DEXT 5% NACL 0.45% KCL 40 MEQ 40 MEQ/1,000 ML BAG IV SCH ×4 (08:29→23:50)
[2018-02-05] MEDS: HYDROmorphone 2 MG/1 ML VIAL IV PRN (08:33)
[2018-02-05] MEDS: PANTOPRAZOLE 40 MG TABLET PO SCH (09:16)
[2018-02-06] MEDS: KETOROLAC 15 MG/1 ML VIAL IV SCH ×4 (02:40→20:50)
[2018-02-06 04:18] LABS: Basophils % 0.2 % (0.0-0.8); Eosinophils # 0.1 10*3/uL (0.0-0.87); Eosinophils % 0.6 % (0.00-10.9); Hemoglobin 9.3 GM/DL (12.0-16.0); Immature Granulocytes % 0.6 %; Immature Granulocytes Absolute 0.08 #; Lymphocytes # 0.7 10*3/uL (1.4-4.0); Lymphocytes % 5.4 % (21.3-54.2); Mean Corpuscular HGB Conc 32.1 GM/DL (32-36); Mean Corpuscular Hemoglobin 27 PG (27-34); Mean Platelet Volume 10.8 FL (9.6-12.0); Monocytes % 7.5 % (1.7-12.7); Neutrophils # 11.3 10*3/uL (1.4-7.4); Neutrophils % 85.7 % (38.7-73.9); Platelet Count 272 T/CUMM (130-400); Red Blood Count 3.41 MC/CUMM (3.8-5.5); Red Cell Distribution Width 14.6 % (9.3-17.3); White Blood Count 13.2 T/CUMM (4-12)
[2018-02-06 04:37] LABS: Calcium 7.5 MG/DL (8.5-10.1); Osmolality,Calculated 276.5 MOS/KG (273-304); Potassium 3.3 MMOL/L (3.5-5.1)
[2018-02-06] MEDS: ENOXAPARIN 40 MG/0.4 ML SYRINGE SUBCUT SCH (06:11)
[2018-02-06] MEDS: PIPERACILLIN/TAZOBACTAM 3,375 MG in SODIUM CHLORIDE 0.9% 100 ML IV SCH ×2 (09:40→17:36)
[2018-02-06] MEDS: DEXT 5% NACL 0.45% KCL 40 MEQ 40 MEQ/1,000 ML BAG IV SCH ×2 (09:40→20:49)
[2018-02-06] MEDS: PANTOPRAZOLE 40 MG TABLET PO SCH (09:41)
[2018-02-06] MEDS ORDERED: MAGNESIUM SULF RIDER 2 GM in PREMIX 1 EACH IV PRN (09:55)
[2018-02-06] MEDS ORDERED: MAGNESIUM SULF RIDER 4 GM in PREMIX 1 EACH IV PRN (09:55)
[2018-02-07] MEDS: PIPERACILLIN/TAZOBACTAM 3,375 MG in SODIUM CHLORIDE 0.9% 100 ML IV SCH ×3 (03:15→17:20)
[2018-02-07] MEDS: KETOROLAC 15 MG/1 ML VIAL IV SCH ×2 (03:20→09:34)
[2018-02-07] MEDS: ENOXAPARIN 40 MG/0.4 ML SYRINGE SUBCUT SCH (05:59)
[2018-02-07 06:35] LABS: Basophils % 0.2 % (0.0-0.8); Eosinophils # 0.2 10*3/uL (0.0-0.87); Eosinophils % 1.7 % (0.00-10.9); Hematocrit 24.7 VOL% (35.7-47.0); Hemoglobin 7.7 GM/DL (12.0-16.0); Immature Granulocytes % 0.8 %; Immature Granulocytes Absolute 0.09 #; Lymphocytes # 1.1 10*3/uL (1.4-4.0); Lymphocytes % 9.5 % (21.3-54.2); Mean Corpuscular HGB Conc 31.2 GM/DL (32-36); Mean Corpuscular Hemoglobin 27 PG (27-34); Mean Corpuscular Volume 86.7 FL (87-102); Mean Platelet Volume 11.4 FL (9.6-12.0); Monocytes # 1.4 10*3/uL (0.11-0.8); Monocytes % 11.6 % (1.7-12.7); Neutrophils # 9.1 10*3/uL (1.4-7.4); Neutrophils % 76.2 % (38.7-73.9); Platelet Count 258 T/CUMM (130-400); Red Blood Count 2.85 MC/CUMM (3.8-5.5); Red Cell Distribution Width 14.6 % (9.3-17.3)
[2018-02-07 07:05] LABS: Calcium 7.8 MG/DL (8.5-10.1); Osmolality,Calculated 277.3 MOS/KG (273-304); Potassium 3.5 MMOL/L (3.5-5.1)
[2018-02-07 07:25] LABS: Platelet Estimate Normal
[2018-02-07] MEDS: PANTOPRAZOLE 40 MG TABLET PO SCH (09:32)
[2018-02-07] MEDS: HYDROmorphone 2 MG/1 ML VIAL IV PRN ×3 (13:12→23:16)
[2018-02-07] MEDS: DEXT 5% NACL 0.45% KCL 40 MEQ 40 MEQ/1,000 ML BAG IV SCH (16:49)
[2018-02-07] MEDS: ONDANSETRON 4 MG/2 ML VIAL IV PRN (17:21)
[2018-02-08] MEDS: PIPERACILLIN/TAZOBACTAM 3,375 MG in SODIUM CHLORIDE 0.9% 100 ML IV SCH ×3 (02:15→17:00)
[2018-02-08] MEDS: HYDROmorphone 2 MG/1 ML VIAL IV PRN ×4 (03:54→19:34)
[2018-02-08] MEDS: ENOXAPARIN 40 MG/0.4 ML SYRINGE SUBCUT SCH (07:20)
[2018-02-08 08:10] LABS: Basophils % 0.2 % (0.0-0.8); Eosinophils # 0.2 10*3/uL (0.0-0.87); Eosinophils % 1.4 % (0.00-10.9); Hematocrit 28.7 VOL% (35.7-47.0); Hemoglobin 9.2 GM/DL (12.0-16.0); Immature Granulocytes % 1.3 %; Immature Granulocytes Absolute 0.16 #; Lymphocytes # 1.4 10*3/uL (1.4-4.0); Lymphocytes % 10.8 % (21.3-54.2); Mean Corpuscular HGB Conc 32.1 GM/DL (32-36); Mean Corpuscular Hemoglobin 27 PG (27-34); Mean Corpuscular Volume 84.4 FL (87-102); Mean Platelet Volume 10.3 FL (9.6-12.0); Monocytes # 1.4 10*3/uL (0.11-0.8); Monocytes % 11.5 % (1.7-12.7); Neutrophils # 9.3 10*3/uL (1.4-7.4); Neutrophils % 74.8 % (38.7-73.9); Platelet Count 323 T/CUMM (130-400); Red Cell Distribution Width 14.9 % (9.3-17.3); White Blood Count 12.5 T/CUMM (4-12)
[2018-02-08] MEDS: PANTOPRAZOLE 40 MG TABLET PO SCH (09:59)
[2018-02-08] MEDS: DEXT 5% NACL 0.45% KCL 40 MEQ 40 MEQ/1,000 ML BAG IV SCH (14:32)
[2018-02-09] MEDS: HYDROmorphone 2 MG/1 ML VIAL IV PRN ×5 (00:45→22:27)
[2018-02-09] MEDS: PIPERACILLIN/TAZOBACTAM 3,375 MG in SODIUM CHLORIDE 0.9% 100 ML IV SCH ×3 (02:50→17:47)
[2018-02-09] MEDS: ENOXAPARIN 40 MG/0.4 ML SYRINGE SUBCUT SCH (06:28)
[2018-02-09] MEDS: DEXT 5% NACL 0.45% KCL 40 MEQ 40 MEQ/1,000 ML BAG IV SCH ×2 (06:42→16:19)
[2018-02-09] MEDS: PANTOPRAZOLE 40 MG TABLET PO SCH (08:39)
[2018-02-10] MEDS: HYDROmorphone 2 MG/1 ML VIAL IV PRN ×4 (03:06→23:54)
[2018-02-10] MEDS: PIPERACILLIN/TAZOBACTAM 3,375 MG in SODIUM CHLORIDE 0.9% 100 ML IV SCH ×3 (03:11→18:55)
[2018-02-10 05:33] LABS: Basophils # 0.1 10*3/uL (0.0-0.2); Basophils % 0.4 % (0.0-0.8); Eosinophils # 0.2 10*3/uL (0.0-0.87); Eosinophils % 1.7 % (0.00-10.9); Hematocrit 30.7 VOL% (35.7-47.0); Hemoglobin 9.7 GM/DL (12.0-16.0); Immature Granulocytes % 1.4 %; Immature Granulocytes Absolute 0.17 #; Lymphocytes # 1.6 10*3/uL (1.4-4.0); Lymphocytes % 13.3 % (21.3-54.2); Mean Corpuscular HGB Conc 31.6 GM/DL (32-36); Mean Corpuscular Hemoglobin 27 PG (27-34); Mean Corpuscular Volume 86.5 FL (87-102); Mean Platelet Volume 10.2 FL (9.6-12.0); Monocytes # 1.2 10*3/uL (0.11-0.8); Monocytes % 9.7 % (1.7-12.7); Neutrophils # 9.1 10*3/uL (1.4-7.4); Neutrophils % 73.5 % (38.7-73.9); Platelet Count 351 T/CUMM (130-400); Red Blood Count 3.55 MC/CUMM (3.8-5.5); Red Cell Distribution Width 14.9 % (9.3-17.3); White Blood Count 12.3 T/CUMM (4-12)
[2018-02-10] MEDS: ENOXAPARIN 40 MG/0.4 ML SYRINGE SUBCUT SCH (05:45)
[2018-02-10] MEDS: ONDANSETRON 4 MG/2 ML VIAL IV PRN (05:54)
[2018-02-10 05:58] LABS: Band Neutrophils 1 % (0-10); Eosinophils 2 % (0-10); Hypochromasia 1+; Lymphocytes 15 % (20-55); Platelet Estimate Adequate; Segmented Neutrophils 69 % (50-85)
[2018-02-10 05:59] LABS: Total Cells Counted 100
[2018-02-10 06:08] LABS: Calcium 7.2 MG/DL (8.5-10.1); Potassium 3.8 MMOL/L (3.5-5.1)
[2018-02-10] MEDS: PANTOPRAZOLE 40 MG TABLET PO SCH (10:57)
[2018-02-11] MEDS: PIPERACILLIN/TAZOBACTAM 3,375 MG in SODIUM CHLORIDE 0.9% 100 ML IV SCH (02:50)
[2018-02-11 05:28] LABS: Basophils % 0.4 % (0.0-0.8); Eosinophils # 0.2 10*3/uL (0.0-0.87); Eosinophils % 1.9 % (0.00-10.9); Hematocrit 28.5 VOL% (35.7-47.0); Immature Granulocytes % 1.5 %; Immature Granulocytes Absolute 0.17 #; Lymphocytes # 1.6 10*3/uL (1.4-4.0); Mean Corpuscular HGB Conc 31.6 GM/DL (32-36); Mean Corpuscular Hemoglobin 27 PG (27-34); Mean Corpuscular Volume 85.8 FL (87-102); Mean Platelet Volume 10.2 FL (9.6-12.0); Monocytes # 1.1 10*3/uL (0.11-0.8); Neutrophils # 8.1 10*3/uL (1.4-7.4); Neutrophils % 72.2 % (38.7-73.9); Platelet Count 346 T/CUMM (130-400); Red Blood Count 3.32 MC/CUMM (3.8-5.5); White Blood Count 11.2 T/CUMM (4-12)
[2018-02-11 05:52] LABS: Hypochromasia 1+; Microcytosis 1+; Platelet Estimate Normal
[2018-02-11] MEDS: ENOXAPARIN 40 MG/0.4 ML SYRINGE SUBCUT SCH (06:55)
[2018-02-11] MEDS: HYDROmorphone 2 MG/1 ML VIAL IV PRN ×4 (06:58→20:33)
[2018-02-11] MEDS: AMOXICILLIN/CLAV 875 MG TABLET PO SCH ×2 (08:29→20:30)
[2018-02-11] MEDS: PANTOPRAZOLE 40 MG TABLET PO SCH (08:29)
[2018-02-12] MEDS: HYDROmorphone 2 MG/1 ML VIAL IV PRN ×5 (00:18→22:38)
[2018-02-12] MEDS: ENOXAPARIN 40 MG/0.4 ML SYRINGE SUBCUT SCH (05:48)
[2018-02-12] MEDS ORDERED: LACTATED RINGERS 1,000 ML IV SCH (07:30)
[2018-02-12] MEDS: AMOXICILLIN/CLAV 875 MG TABLET PO SCH ×2 (09:55→20:39)
[2018-02-12] MEDS: PANTOPRAZOLE 40 MG TABLET PO SCH (11:21)
[2018-02-12] MEDS ORDERED: fentaNYL 100 MCG/2 ML VIAL IV ONE (12:02)
[2018-02-12] MEDS ORDERED: DIAZEPAM 5 MG TABLET PO ONE (12:02)
[2018-02-12] MEDS ORDERED: MIDAZOLAM 2 MG/2 ML VIAL IV ONE (12:02)
[2018-02-12] MEDS ORDERED: MIDAZOLAM 2 MG/2 ML VIAL ONE (14:22)
[2018-02-12] MEDS ORDERED: fentaNYL 100 MCG/2 ML VIAL ONE (14:22)
[2018-02-13] MEDS: HYDROmorphone 2 MG/1 ML VIAL IV PRN ×4 (02:22→20:14)
[2018-02-13 06:09] LABS: Basophils # 0.1 10*3/uL (0.0-0.2); Basophils % 0.3 % (0.0-0.8); Eosinophils # 0.1 10*3/uL (0.0-0.87); Eosinophils % 0.8 % (0.00-10.9); Hematocrit 33.3 VOL% (35.7-47.0); Hemoglobin 10.9 GM/DL (12.0-16.0); Immature Granulocytes % 2.4 %; Immature Granulocytes Absolute 0.38 #; Lymphocytes # 1.7 10*3/uL (1.4-4.0); Lymphocytes % 10.8 % (21.3-54.2); Mean Corpuscular HGB Conc 32.7 GM/DL (32-36); Mean Corpuscular Hemoglobin 27 PG (27-34); Mean Corpuscular Volume 82.8 FL (87-102); Mean Platelet Volume 10.1 FL (9.6-12.0); Monocytes # 1.5 10*3/uL (0.11-0.8); Monocytes % 9.4 % (1.7-12.7); Neutrophils # 12.1 10*3/uL (1.4-7.4); Neutrophils % 76.3 % (38.7-73.9); Platelet Count 468 T/CUMM (130-400); Red Blood Count 4.02 MC/CUMM (3.8-5.5); White Blood Count 15.8 T/CUMM (4-12)
[2018-02-13 06:26] LABS: Osmolality,Calculated 266.2 MOS/KG (273-304); Potassium 3.8 MMOL/L (3.5-5.1)
[2018-02-13] MEDS: ENOXAPARIN 40 MG/0.4 ML SYRINGE SUBCUT SCH (06:48)
[2018-02-13] MEDS: PANTOPRAZOLE 40 MG TABLET PO SCH (10:56)
[2018-02-13] MEDS: AMOXICILLIN/CLAV 875 MG TABLET PO SCH ×2 (10:56→20:13)
[2018-02-14] MEDS: ONDANSETRON 4 MG/2 ML VIAL IV PRN (01:23)
[2018-02-14] MEDS: HYDROmorphone 2 MG/1 ML VIAL IV PRN ×4 (01:27→19:42)
[2018-02-14] MEDS: ENOXAPARIN 40 MG/0.4 ML SYRINGE SUBCUT SCH (06:36)
[2018-02-14] MEDS: PANTOPRAZOLE 40 MG TABLET PO SCH (09:31)
[2018-02-14] MEDS: AMOXICILLIN/CLAV 875 MG TABLET PO SCH ×2 (09:31→19:41)
[2018-02-14] MEDS ORDERED: FUROSEMIDE 20 MG TABLET PO ONE (10:21)
[2018-02-14 12:14] LABS: Basophils # 0.1 10*3/uL (0.0-0.2); Basophils % 0.4 % (0.0-0.8); Eosinophils # 0.1 10*3/uL (0.0-0.87); Hemoglobin 10.7 GM/DL (12.0-16.0); Immature Granulocytes % 2.6 %; Immature Granulocytes Absolute 0.36 #; Lymphocytes # 1.7 10*3/uL (1.4-4.0); Lymphocytes % 11.9 % (21.3-54.2); Mean Corpuscular HGB Conc 32.4 GM/DL (32-36); Mean Corpuscular Hemoglobin 28 PG (27-34); Mean Corpuscular Volume 84.8 FL (87-102); Mean Platelet Volume 10.1 FL (9.6-12.0); Monocytes # 1.5 10*3/uL (0.11-0.8); Monocytes % 10.5 % (1.7-12.7); Neutrophils # 10.4 10*3/uL (1.4-7.4); Neutrophils % 73.6 % (38.7-73.9); Platelet Count 554 T/CUMM (130-400); Red Blood Count 3.89 MC/CUMM (3.8-5.5); Red Cell Distribution Width 15.1 % (9.3-17.3); White Blood Count 14.1 T/CUMM (4-12)
[2018-02-14 12:36] LABS: Calcium 8.2 MG/DL (8.5-10.1); Osmolality,Calculated 263.5 MOS/KG (273-304); Potassium 3.5 MMOL/L (3.5-5.1)
[2018-02-15] MEDS: ONDANSETRON 4 MG/2 ML VIAL IV PRN (02:13)
[2018-02-15 05:16] LABS: Basophils # 0.1 10*3/uL (0.0-0.2); Basophils % 0.6 % (0.0-0.8); Eosinophils # 0.2 10*3/uL (0.0-0.87); Eosinophils % 1.5 % (0.00-10.9); Hematocrit 30.2 VOL% (35.7-47.0); Hemoglobin 9.6 GM/DL (12.0-16.0); Immature Granulocytes % 2.7 %; Immature Granulocytes Absolute 0.31 #; Lymphocytes # 1.6 10*3/uL (1.4-4.0); Lymphocytes % 13.5 % (21.3-54.2); Mean Corpuscular HGB Conc 31.8 GM/DL (32-36); Mean Corpuscular Hemoglobin 27 PG (27-34); Mean Corpuscular Volume 83.4 FL (87-102); Mean Platelet Volume 10.1 FL (9.6-12.0); Monocytes # 1.1 10*3/uL (0.11-0.8); Monocytes % 9.3 % (1.7-12.7); Neutrophils # 8.5 10*3/uL (1.4-7.4); Neutrophils % 72.4 % (38.7-73.9); Platelet Count 542 T/CUMM (130-400); Red Blood Count 3.62 MC/CUMM (3.8-5.5); Red Cell Distribution Width 14.9 % (9.3-17.3); White Blood Count 11.7 T/CUMM (4-12)
[2018-02-15] MEDS: HYDROmorphone 2 MG/1 ML VIAL IV PRN ×2 (05:39→18:12)
[2018-02-15 05:42] LABS: Calcium 7.8 MG/DL (8.5-10.1); Potassium 3.2 MMOL/L (3.5-5.1)
[2018-02-15] MEDS: ENOXAPARIN 40 MG/0.4 ML SYRINGE SUBCUT SCH (05:44)
[2018-02-15] MEDS: AMOXICILLIN/CLAV 875 MG TABLET PO SCH ×2 (08:46→19:21)
[2018-02-15] MEDS: PANTOPRAZOLE 40 MG TABLET PO SCH (08:46)
[2018-02-15] MEDS ORDERED: POTASSIUM CHLORIDE 20 MEQ TABLET PO ONE (09:26)
[2018-02-15] MEDS: POLYETHYLENE GLYCOL POWDER 17 GM PACK PO SCH (09:47)
[2018-02-16] MEDS: HYDROmorphone 2 MG/1 ML VIAL IV PRN ×4 (02:11→20:35)
[2018-02-16 05:29] LABS: Calcium 8.1 MG/DL (8.5-10.1); Osmolality,Calculated 269.8 MOS/KG (273-304); Potassium 3.4 MMOL/L (3.5-5.1)
[2018-02-16] MEDS: ENOXAPARIN 40 MG/0.4 ML SYRINGE SUBCUT SCH (06:24)
[2018-02-16] MEDS: PANTOPRAZOLE 40 MG TABLET PO SCH (09:08)
[2018-02-16] MEDS: POTASSIUM CHLORIDE 20 MEQ TABLET PO SCH (09:08)
[2018-02-16] MEDS: AMOXICILLIN/CLAV 875 MG TABLET PO SCH ×2 (09:08→20:31)
[2018-02-16] MEDS: POLYETHYLENE GLYCOL POWDER 17 GM PACK PO SCH (09:08)
[2018-02-17] MEDS: HYDROmorphone 2 MG/1 ML VIAL IV PRN ×4 (04:21→23:13)
[2018-02-17] MEDS: ENOXAPARIN 40 MG/0.4 ML SYRINGE SUBCUT SCH (05:32)
[2018-02-17] MEDS: PANTOPRAZOLE 40 MG TABLET PO SCH (08:17)
[2018-02-17] MEDS: POTASSIUM CHLORIDE 20 MEQ TABLET PO SCH ×2 (08:17→08:20)
[2018-02-17] MEDS: AMOXICILLIN/CLAV 875 MG TABLET PO SCH ×2 (08:17→20:31)
[2018-02-17] MEDS: POLYETHYLENE GLYCOL POWDER 17 GM PACK PO SCH (08:21)
[2018-02-17] MEDS: SODIUM HYPOCHLORITE 0.25% IRRIG 473 ML BOTTLE TOP SCH ×2 (11:26→20:32)
[2018-02-18] MEDS: ENOXAPARIN 40 MG/0.4 ML SYRINGE SUBCUT SCH (05:52)
[2018-02-18] MEDS: HYDROmorphone 2 MG/1 ML VIAL IV PRN ×5 (05:53→21:43)
[2018-02-18] MEDS: SODIUM HYPOCHLORITE 0.25% IRRIG 473 ML BOTTLE TOP SCH ×2 (09:51→21:45)
[2018-02-18] MEDS: POLYETHYLENE GLYCOL POWDER 17 GM PACK PO SCH (11:29)
[2018-02-18] MEDS: AMOXICILLIN/CLAV 875 MG TABLET PO SCH ×2 (11:30→20:23)
[2018-02-18] MEDS: POTASSIUM CHLORIDE 20 MEQ TABLET PO SCH (11:30)
[2018-02-18] MEDS: PANTOPRAZOLE 40 MG TABLET PO SCH (11:30)
[2018-02-19] MEDS: HYDROmorphone 2 MG/1 ML VIAL IV PRN ×5 (02:48→21:03)
[2018-02-19] MEDS: ENOXAPARIN 40 MG/0.4 ML SYRINGE SUBCUT SCH (06:47)
[2018-02-19 07:23] LABS: Basophils # 0.1 10*3/uL (0.0-0.2); Basophils % 0.6 % (0.0-0.8); Eosinophils # 0.2 10*3/uL (0.0-0.87); Eosinophils % 2.3 % (0.00-10.9); Hematocrit 30.3 VOL% (35.7-47.0); Hemoglobin 9.6 GM/DL (12.0-16.0); Immature Granulocytes % 1.8 %; Immature Granulocytes Absolute 0.18 #; Lymphocytes # 1.4 10*3/uL (1.4-4.0); Lymphocytes % 13.3 % (21.3-54.2); Mean Corpuscular HGB Conc 31.7 GM/DL (32-36); Mean Corpuscular Hemoglobin 27 PG (27-34); Mean Corpuscular Volume 84.2 FL (87-102); Mean Platelet Volume 10.1 FL (9.6-12.0); Monocytes # 0.8 10*3/uL (0.11-0.8); Neutrophils # 7.5 10*3/uL (1.4-7.4); Platelet Count 644 T/CUMM (130-400); White Blood Count 10.2 T/CUMM (4-12)
[2018-02-19 07:51] LABS: Calcium 8.4 MG/DL (8.5-10.1); Potassium 4.1 MMOL/L (3.5-5.1)
[2018-02-19] MEDS: POTASSIUM CHLORIDE 20 MEQ TABLET PO SCH (08:23)
[2018-02-19] MEDS: PANTOPRAZOLE 40 MG TABLET PO SCH (08:23)
[2018-02-19] MEDS: POLYETHYLENE GLYCOL POWDER 17 GM PACK PO SCH (08:24)
[2018-02-19] MEDS: AMOXICILLIN/CLAV 875 MG TABLET PO SCH (09:30)
[2018-02-19] MEDS: SODIUM HYPOCHLORITE 0.25% IRRIG 473 ML BOTTLE TOP SCH ×2 (10:55→21:39)
[2018-02-19] MEDS: ERTAPENEM 1,000 MG in SODIUM CHLORIDE 0.9% 100 ML IV SCH (16:00)
[2018-02-20] MEDS: HYDROmorphone 2 MG/1 ML VIAL IV PRN ×6 (02:12→23:42)
[2018-02-20] MEDS: ENOXAPARIN 40 MG/0.4 ML SYRINGE SUBCUT SCH (06:12)
[2018-02-20] MEDS: POTASSIUM CHLORIDE 20 MEQ TABLET PO SCH (08:54)
[2018-02-20] MEDS: POLYETHYLENE GLYCOL POWDER 17 GM PACK PO SCH (08:56)
[2018-02-20] MEDS: PANTOPRAZOLE 40 MG TABLET PO SCH (08:56)
[2018-02-20] MEDS: SODIUM HYPOCHLORITE 0.25% IRRIG 473 ML BOTTLE TOP SCH ×2 (08:58→20:02)
[2018-02-20] MEDS ORDERED: PERMETHRIN 1% LOTION 59 ML BOTTLE TOP ONE (09:00)
[2018-02-20] MEDS: ERTAPENEM 1,000 MG in SODIUM CHLORIDE 0.9% 100 ML IV SCH (15:50)
[2018-02-21] MEDS: HYDROmorphone 2 MG/1 ML VIAL IV PRN ×4 (04:26→20:50)
[2018-02-21] MEDS: ENOXAPARIN 40 MG/0.4 ML SYRINGE SUBCUT SCH (06:10)
[2018-02-21] MEDS: SODIUM HYPOCHLORITE 0.25% IRRIG 473 ML BOTTLE TOP SCH ×2 (08:08→20:50)
[2018-02-21] MEDS: POTASSIUM CHLORIDE 20 MEQ TABLET PO SCH (10:02)
[2018-02-21] MEDS: POLYETHYLENE GLYCOL POWDER 17 GM PACK PO SCH (10:03)
[2018-02-21] MEDS: PANTOPRAZOLE 40 MG TABLET PO SCH (10:03)
[2018-02-21] MEDS: ERTAPENEM 1,000 MG in SODIUM CHLORIDE 0.9% 100 ML IV SCH (15:15)
[2018-02-22] MEDS: HYDROmorphone 2 MG/1 ML VIAL IV PRN ×4 (03:39→21:11)
[2018-02-22] MEDS: ENOXAPARIN 40 MG/0.4 ML SYRINGE SUBCUT SCH (05:35)
[2018-02-22] MEDS: SODIUM HYPOCHLORITE 0.25% IRRIG 473 ML BOTTLE TOP SCH ×2 (08:39→21:14)
[2018-02-22] MEDS: POTASSIUM CHLORIDE 20 MEQ TABLET PO SCH (09:48)
[2018-02-22] MEDS: PANTOPRAZOLE 40 MG TABLET PO SCH (09:49)
[2018-02-22] MEDS: POLYETHYLENE GLYCOL POWDER 17 GM PACK PO SCH (09:55)
[2018-02-22] MEDS: PIPERACILLIN/TAZOBACTAM 3,375 MG in SODIUM CHLORIDE 0.9% 100 ML IV SCH ×2 (10:22→17:54)
[2018-02-23] MEDS: PIPERACILLIN/TAZOBACTAM 3,375 MG in SODIUM CHLORIDE 0.9% 100 ML IV SCH (02:10)
[2018-02-23] MEDS: HYDROmorphone 2 MG/1 ML VIAL IV PRN ×4 (03:53→23:40)
[2018-02-23] MEDS: ENOXAPARIN 40 MG/0.4 ML SYRINGE SUBCUT SCH (05:55)
[2018-02-23] MEDS: PANTOPRAZOLE 40 MG TABLET PO SCH (09:30)
[2018-02-23] MEDS: POTASSIUM CHLORIDE 20 MEQ TABLET PO SCH (09:30)
[2018-02-23] MEDS: POLYETHYLENE GLYCOL POWDER 17 GM PACK PO SCH (09:30)
[2018-02-23] MEDS: SODIUM HYPOCHLORITE 0.25% IRRIG 473 ML BOTTLE TOP SCH ×2 (10:30→20:57)
[2018-02-23] MEDS: cefTAZidime 1,000 MG in SYRINGE 1 EACH IV SCH ×2 (11:35→18:44)
[2018-02-24] MEDS: cefTAZidime 1,000 MG in SYRINGE 1 EACH IV SCH ×3 (02:11→17:56)
[2018-02-24 04:10] LABS: Basophils % 0.6 % (0.0-0.8); Eosinophils # 0.2 10*3/uL (0.0-0.87); Eosinophils % 3.1 % (0.00-10.9); Hematocrit 29.1 VOL% (35.7-47.0); Hemoglobin 9.1 GM/DL (12.0-16.0); Immature Granulocytes % 0.6 %; Immature Granulocytes Absolute 0.04 #; Lymphocytes # 1.5 10*3/uL (1.4-4.0); Lymphocytes % 23.7 % (21.3-54.2); Mean Corpuscular HGB Conc 31.3 GM/DL (32-36); Mean Corpuscular Hemoglobin 27 PG (27-34); Mean Corpuscular Volume 85.1 FL (87-102); Mean Platelet Volume 10.1 FL (9.6-12.0); Monocytes # 0.7 10*3/uL (0.11-0.8); Monocytes % 10.3 % (1.7-12.7); Neutrophils % 61.7 % (38.7-73.9); Platelet Count 501 T/CUMM (130-400); Red Blood Count 3.42 MC/CUMM (3.8-5.5); Red Cell Distribution Width 14.9 % (9.3-17.3); White Blood Count 6.5 T/CUMM (4-12)
[2018-02-24 04:29] LABS: Calcium 8.4 MG/DL (8.5-10.1); Osmolality,Calculated 272.7 MOS/KG (273-304); Potassium 3.7 MMOL/L (3.5-5.1)
[2018-02-24] MEDS: HYDROmorphone 2 MG/1 ML VIAL IV PRN ×3 (06:12→19:49)
[2018-02-24] MEDS: ENOXAPARIN 40 MG/0.4 ML SYRINGE SUBCUT SCH (06:12)
[2018-02-24] MEDS: POTASSIUM CHLORIDE 20 MEQ TABLET PO SCH (10:24)
[2018-02-24] MEDS: POLYETHYLENE GLYCOL POWDER 17 GM PACK PO SCH (10:25)
[2018-02-24] MEDS: PANTOPRAZOLE 40 MG TABLET PO SCH (10:25)
[2018-02-24] MEDS: SODIUM HYPOCHLORITE 0.25% IRRIG 473 ML BOTTLE TOP SCH (10:32)
[2018-02-24] MEDS: ONDANSETRON 4 MG/2 ML VIAL IV PRN ×2 (10:41→19:48)
[2018-02-25] MEDS: cefTAZidime 1,000 MG in SYRINGE 1 EACH IV SCH ×2 (03:04→11:02)
[2018-02-25] MEDS: HYDROmorphone 2 MG/1 ML VIAL IV PRN ×2 (03:06→11:02)
[2018-02-25] MEDS: SODIUM HYPOCHLORITE 0.25% IRRIG 473 ML BOTTLE TOP SCH ×2 (06:11→08:37)
[2018-02-25] MEDS: ENOXAPARIN 40 MG/0.4 ML SYRINGE SUBCUT SCH (08:38)
[2018-02-25] MEDS: POLYETHYLENE GLYCOL POWDER 17 GM PACK PO SCH (08:39)
[2018-02-25] MEDS: POTASSIUM CHLORIDE 20 MEQ TABLET PO SCH (08:40)
[2018-02-25] MEDS: PANTOPRAZOLE 40 MG TABLET PO SCH (08:40)
[2018-02-25 11:52] VITALS: BP 131/69
[2018-02-25] MEDS ORDERED: INFLUENZA VIRUS VACCINE 0.5 ML SYRINGE IM ONE (11:52)
== END 2018-02-25 12:55 | disposition hospice, home (50) | DRG 330 ==
LOC: EDUNIT# → EDBD → N.ED 10:30 → N.EDINP 12:12 → N.3E 12:41 → N.CC 02-03 17:16 → N.3E 02-05 12:23
PROVIDERS: ADMIT Surgery; ATTEND Surgery